=== PATIENT | male | born 1955 | race Two or more races ===

== ENCOUNTER 2025-02-06 19:55 | Emergency (ER) | payer OTHER ==
[~2025-02-06] VITALS: Ht 167.6 cm; Wt 81.8 kg
[2025-02-06 20:06] VITALS: TEMP 97.9
[2025-02-06] MEDS: ACETAMINOPHEN 500 MG TABLET PO ONE (20:42)
[2025-02-06] MEDS: BACITRACIN 0.9 GM PACKET OINTMENT TP ONE (20:43)
[2025-02-06 22:44] VITALS: BP 128/71; PULSE 67; RESP 16; O2SAT 100
== END 2025-02-06 23:36 ==
LOC: EMS 20:01
DX: S00.01XA Abrasion of scalp, initial encounter (principal); E11.9 Type 2 diabetes mellitus without complications; I10 Essential (primary) hypertension; W01.0XXA Fall on same level from slipping, tripping and stumbling without subsequent striking against object, initial encounter; Y93.89 Activity, other specified; Y92.89 Other specified places as the place of occurrence of the external cause; Y99.8 Other external cause status
CPT/HCPCS: 70450; 72125; 99284